=== PATIENT | female | born 2005 | race Caucasian/White ===

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

== ENCOUNTER → 2024-02-04 16:01 | Outpatient (BNVA) | payer MEDICAID, SELFPAY | PROVIDERS: PCP Family Medicine; Visit Provider Obstetrics & Gynecology | DX: Z86.39 Personal history of other endocrine, nutritional and metabolic disease (principal) | CPT/HCPCS: 84439; 84443; 84481 ==

== ENCOUNTER 2024-11-15 18:07 | Outpatient (CLI) | payer MEDICAID, SELFPAY ==
[2024-11-15 18:19] VITALS: BP 149/81; PULSE 100
[2024-11-15 18:39] VITALS: BP 148/83; PULSE 86
[2024-11-15 18:59] VITALS: BP 143/72; PULSE 86
== END 2024-11-15 19:10 | disposition home or self-care (01) ==
LOC: OPOB 18:11 → OBGYN 18:12
PROVIDERS: PCP Family Medicine; Visit Provider Family Medicine
DX: O26.899 Other specified pregnancy related conditions, unspecified trimester (principal); Z3A.00 Weeks of gestation of pregnancy not specified; R10.9 Unspecified abdominal pain
CPT/HCPCS: 59025; 99211

== ENCOUNTER 2024-11-19 18:07 | Outpatient (CLI) | payer MEDICAID, SELFPAY ==
[2024-11-19 18:17] VITALS: BMI 46.4
[2024-11-19 18:21] VITALS: BP 142/83; PULSE 100
[2024-11-19 18:36] VITALS: BP 133/69; PULSE 86
[2024-11-19 18:52] VITALS: BP 140/88; PULSE 86
[2024-11-19 19:24] VITALS: BP 140/88; PULSE 86; O2SAT 98
== END 2024-11-19 19:28 | disposition home or self-care (01) ==
LOC: OPOB 18:10 → OBGYN 18:10
PROVIDERS: PCP Family Medicine; Visit Provider Family Medicine
DX: O26.899 Other specified pregnancy related conditions, unspecified trimester (principal); Z3A.00 Weeks of gestation of pregnancy not specified; R10.9 Unspecified abdominal pain
CPT/HCPCS: 59025; 99211

== ENCOUNTER 2024-11-20 17:00 | Outpatient (CLI) | payer MEDICAID, SELFPAY ==
[2024-11-20] VITALS (7 sets, daily range): BP systolic 129–138; BP diastolic 60–73; PULSE 81–90; RESP 18; BMI 46.8
== END 2024-11-20 18:52 | disposition home or self-care (01) ==
LOC: OPOB 17:03 → OBGYN 17:04
PROVIDERS: PCP Family Medicine; Visit Provider Obstetrics & Gynecology
DX: O36.8190 Decreased fetal movements, unspecified trimester, not applicable or unspecified (principal); Z3A.00 Weeks of gestation of pregnancy not specified; R10.9 Unspecified abdominal pain
CPT/HCPCS: 59025; 99211